=== PATIENT | female | born 1955 | race Caucasian/White ===

== ENCOUNTER → 2024-06-10 08:32 | Outpatient (REF) | payer MEDICARE, OTHER, SELFPAY | LOC: HWWDC 08:32 | PROVIDERS: ATTENDING PHYSICIAN Family Medicine | DX: Z12.31 Encounter for screening mammogram for malignant neoplasm of breast (principal) | CPT/HCPCS: 77063; 77067 ==

== ENCOUNTER → 2025-05-12 08:32 | Outpatient (REF) | payer MEDICARE, OTHER, SELFPAY ==
--- NOTE | 2025-05-17 11:23 | OID.L.PAT ---
Pulmonary Nodule Pat Letter
- -
05/17/25
LILLY STEPHENSON
[address]
[place] [id number]
Deamelvina CARR,
A pulmonary nodule was seen on an imaging study done by [facility]. This was reviewed by the [facility] Pulmonary Nodule Advisory Board and the following recommendation was made:
Recommendation: Follow up CT Chest in 12 months.
If you have any questions, please do not hesitate to contact your primary care physician. If you are in need of a Physician, you can go to [email or web address] and click on 'Find a Provider'. Type 'Family Medicine' in the search.
Oncology Nurse Navigator
[facility]
[phone]
--- NOTE | 2025-05-17 11:24 | OID.L.REC ---
Pulmonary Nodule Follow Up
- Recommendation
05/17/25
Pulmonary Nodule Review Recommendations
Your patient, LILLY STEPHENSON, had a pulmonary nodule seen on an imaging study done on 05/12/2025 in the [facility] Radiology Department.
This was reviewed by the [facility] Pulmonary Nodule Advisory Board and the following recommendation was made:
Recommendation: Follow up CT Chest in 12 months.
If you have any questions, please do not hesitate to contact us.
Sincerely,
Oncology Nurse Navigator
[facility]
[phone]
== END ==
LOC: HWRAD 08:32
PROVIDERS: ATTENDING PHYSICIAN Student in an Organized Health Care Education/Training Program; FAMILY PHYSICIAN Family Medicine
DX: E78.00 Pure hypercholesterolemia, unspecified (principal); M15.0 Primary generalized (osteo)arthritis; M15.1 Heberden's nodes (with arthropathy); M15.2 Bouchard's nodes (with arthropathy); M25.40 Effusion, unspecified joint; M25.50 Pain in unspecified joint; M79.641 Pain in right hand; M79.642 Pain in left hand; M79.671 Pain in right foot; M79.672 Pain in left foot; N30.90 Cystitis, unspecified without hematuria; Z68.28 Body mass index [BMI] 28.0-28.9, adult; Z71.89 Other specified counseling; Z87.19 Personal history of other diseases of the digestive system; R76.89 Other specified abnormal immunological findings in serum
CPT/HCPCS: 72110; 72170; 73630; 75571